=== PATIENT | male | born 1990 | race Caucasian/White ===

== ENCOUNTER 2017-02-07 16:19 | Emergency (ER) | payer OTHER ==
[2017-02-07] MEDS: ACETAMINOPHEN 500 MG TABLET PO (18:41)
== END 2017-02-07 20:00 | disposition home or self-care (01) ==
LOC: ER 16:19
DX: T58.91XA Toxic effect of carbon monoxide from unspecified source, accidental (unintentional), initial encounter (principal); Y93.89 Activity, other specified; Y99.8 Other external cause status; Y92.69 Other specified industrial and construction area as the place of occurrence of the external cause
CPT/HCPCS: 36600; 93005; 99283-25